=== PATIENT | female | born 1955 | race Caucasian/White ===

== ENCOUNTER → 2024-10-08 | Outpatient (CLI) | payer MEDICARE ==
--- NOTE | 2024-10-08 14:17 | XR ---
EXAMINATION TYPE: XR foot complete LT DATE OF EXAM: 10/08/2024 1:47 PM COMPARISON: None CLINICAL INDICATION: Female, 69 years old with history of M79.672 PAIN IN LEFT FOOT; [facility] TECHNIQUE: XR foot complete LT examined in the AP, oblique, and lateral projections. FINDINGS: The base of the fifth metatarsal appears intact. No evidence of any acute osseous pathology. 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 Calcaneal plantar spurring is present. IMPRESSION: 1. No evidence of fracture, the base of fifth metatarsal appears intact. 2. Multifocal degeneration changes throughout the joints of the foot. [facility], , 10/08/2024 2:15 PM
== END | disposition home or self-care (01) ==
LOC: RADXRMAIN 13:06
PROVIDERS: ATTEND Podiatrist Primary Podiatric Medicine
DX: M19.072 Primary osteoarthritis, left ankle and foot (principal)